=== PATIENT | female | born 1970 | race Caucasian/White ===

== ENCOUNTER 2019-05-13 14:58 | Emergency (ER) | payer SELFPAY ==
[2019-05-13] MEDS ORDERED: Ketorolac Tromethamine 30 MG/ML VIAL ONE (16:16)
[2019-05-13] MEDS ORDERED: Dexamethasone 10 MG/ML VIAL ONE (16:16)
== END 2019-05-13 16:30 | disposition home or self-care (01) ==
LOC: ERS 14:58
DX: M54.42 Lumbago with sciatica, left side (principal); I10 Essential (primary) hypertension; E11.9 Type 2 diabetes mellitus without complications
CPT/HCPCS: 96372; 99283; J1100; J1885

== ENCOUNTER 2020-09-10 16:01 | Emergency (ER) | payer OTHER ==
[2020-09-10 17:24] LABS: #Basophils 0.1 thou/uL (0.0-0.2); #Eosinphils 0.1 thou/uL (0.0-0.7); #Monocytes 0.4 thou/uL (0.11-0.59); #Neutrophils 8.6 thou/uL (1.40-6.50); %Basophils 0.7 % (0.0-1.0); %Eosinophils 0.6 % (0.0-10.0); %Lymphocytes 24.5 % (21.0-51.0); %Monocytes 3.6 % (0.0-10.0); %Neutrophils 70.6 % (42.0-75.0); Mean Corpuscular HGB CONC 35.1 g/dL (32.0-36.0); Mean Corpuscular Hemoglobin 31.2 pg (27.0-31.0); Mean Corpuscular Volume 88.9 fL (78.0-98.0); Mean Platelet Volume 9.4 fL (7.4-10.4); Platelet Count 217 thou/uL (130-400); RBC Distribution Width 12.1 % (11.5-14.5); Red Blood Cell (RBC) Count 5.13 mill/uL (4.20-5.40); White Blood Cell (WBC) Count 12.2 thou/uL (4.8-10.8)
[2020-09-10] MEDS ORDERED: Insulin Regular 300 UNITS/3 ML VIAL ONE (17:27)
[2020-09-10] MEDS ORDERED: Ondansetron PF 4 MG/2 ML Vial ONE (17:27)
[2020-09-10 17:46] LABS: ALT (SGPT) 11 U/L (8-55); AST (SGOT) 8 U/L (5-34); Albumin 4.5 g/dL (3.5-5.0); Alkaline Phosphatase 121 U/L (40-110); Anion Gap 18 mmol/L (10-20); BUN (Urea Nitrogen) 14 mg/dL (7.0-18.7); Bilirubin, Total 0.2 mg/dL (0.2-1.2); Calc. Creatinine Clearance 0 mL/min (70-130); Calcium 10.3 mg/dL (7.8-10.44); Carbon Dioxide 23 mmol/L (22-29); Chloride 97 mmol/L (98-107); Globulin 2.7 g/dL (2.4-3.5); Glucose 520 mg/dL (70-105); Potassium 4.5 mmol/L (3.5-5.1); Protein, Total 7.2 g/dL (6.0-8.3); Sodium 133 mmol/L (136-145)
== END 2020-09-10 20:00 | disposition home or self-care (01) ==
LOC: ERS 16:01
DX: E11.65 Type 2 diabetes mellitus with hyperglycemia (principal); E86.0 Dehydration; I10 Essential (primary) hypertension
CPT/HCPCS: 36415; 36416; 80053; 82010; 85025; 96374; 96375; J1815; J2405

== ENCOUNTER 2024-01-24 21:34 | Inpatient (IN) | payer OTHER ==
[2024-01-24] MEDS ORDERED: Morphine 4 MG/ML VIAL ONE ×2 (21:49→23:22)
[2024-01-24] MEDS ORDERED: PROPOFOL 20 ML ONE (22:06)
[2024-01-24 22:23] LABS: #Basophils 0.04 10x3/uL (0.0-0.2); %Basophils 0.5 % (0.0-1.0); %Eosinophils 0.8 % (0.0-10.0); %Lymphocytes 17.5 % (21.0-51.0); %Monocytes 5.6 % (0.0-10.0); %Neutrophils 75.4 % (42.0-75.0); Hematocrit 38.2 % (36.0-47.0); Hemoglobin 13.4 g/dL (12.0-16.0); Mean Corpuscular HGB CONC 35.1 g/dL (32.0-36.0); Mean Corpuscular Hemoglobin 28.8 pg (27.0-31.0); Mean Platelet Volume 11.8 fL (7.4-10.4); Platelet Count 214 10x3/uL (130-400); RBC Distribution Width 12.5 % (11.5-14.5); Red Blood Cell (RBC) Count 4.66 mill/uL (4.20-5.40)
[2024-01-24 22:36] LABS: INR-International Normal Ratio 0.8; Prothrombin Time 11.1 sec (12.0-14.7)
[2024-01-24 22:37] LABS: PTT 21.6 sec (22.9-36.1)
[2024-01-24 22:44] LABS: ALT (SGPT) 15 U/L (8-55); AST (SGOT) 17 U/L (5-34); Albumin 3.8 g/dL (3.5-5.0); Alkaline Phosphatase 98 U/L (40-110); Anion Gap 17 mmol/L (10-20); BUN (Urea Nitrogen) 13 mg/dL (9.8-20.1); Bilirubin, Total 0.3 mg/dL (0.2-1.2); Calc. Creatinine Clearance 0 mL/min (70-130); Calcium 9.1 mg/dL (7.8-10.44); Carbon Dioxide 20 mmol/L (22-29); Chloride 98 mmol/L (98-107); Estimated GFR 63; Globulin 3.2 g/dL (2.4-3.5); Glucose 587 mg/dL (70-105); Potassium 4.3 mmol/L (3.5-5.1); Sodium 131 mmol/L (136-145)
[2024-01-24] MEDS ORDERED: Ketamine In 0.9 % NaCl 50 MG/5 ML SYRINGE ONE (22:48)
[2024-01-24] MEDS ORDERED: HYDROcodone/Acetaminophen 7.5/325 mg Tablet PO PRN (23:33)
[2024-01-24] MEDS ORDERED: Ipratropium/Albuterol 3 ML NEB NEB PRN (23:33)
[2024-01-24] MEDS ORDERED: Acetaminophen 325 MG TAB PO PRN (23:33)
[2024-01-24] MEDS ORDERED: Dextrose 50% Abboject 50 ML SYRINGE SLOW IVP PRN (23:33)
[2024-01-24] MEDS ORDERED: Dextrose 5% in Water 1,000 ML IV PRN (23:33)
[2024-01-24] MEDS ORDERED: Glucagon 1 MG/ML KIT IM PRN (23:33)
[2024-01-24] MEDS ORDERED: Midazolam HCl 5 mg/ml Vial ONE (23:34)
[2024-01-24] MEDS ORDERED: Methocarbamol 500 MG TAB PO PRN (23:40)
[2024-01-24] MEDS ORDERED: Naloxone HCl 0.4 mg/ml Vial ONE ×2 (23:40→23:44)
[2024-01-25] MEDS: Morphine 4 MG/ML VIAL SLOW IVP PRN (01:20)
[2024-01-25] MEDS: Sodium Chloride 0.9% 1,000 ML IV SCH (03:31)
[2024-01-25] MEDS: Insulin Lispro 100 UNIT/ML 10 ML VIAL SC PRN ×2 (03:31→22:28)
[2024-01-25 04:56] LABS: #Basophils Less than 0.03 10x3/uL (0.0-0.2); %Basophils 0.2 % (0.0-1.0); %Eosinophils 0.4 % (0.0-10.0); %Lymphocytes 14.6 % (21.0-51.0); %Monocytes 5.2 % (0.0-10.0); %Neutrophils 79.1 % (42.0-75.0); Hematocrit 34.9 % (36.0-47.0); Hemoglobin 11.8 g/dL (12.0-16.0); Mean Corpuscular HGB CONC 33.8 g/dL (32.0-36.0); Mean Corpuscular Hemoglobin 28.8 pg (27.0-31.0); Mean Corpuscular Volume 85.1 fL (78.0-98.0); Mean Platelet Volume 11.8 fL (7.4-10.4); Platelet Count 189 10x3/uL (130-400); RBC Distribution Width 12.6 % (11.5-14.5)
[2024-01-25 05:00] LABS: Hemoglobin A1c Greater than 14.0 % (4.0-6.0)
[2024-01-25 05:19] LABS: Anion Gap 14 mmol/L (10-20); BUN (Urea Nitrogen) 11 mg/dL (9.8-20.1); Calc. Creatinine Clearance 90 mL/min (70-130); Calcium 8.3 mg/dL (7.8-10.44); Carbon Dioxide 19 mmol/L (22-29); Chloride 105 mmol/L (98-107); Estimated GFR 79; Glucose 496 mg/dL (70-105); Potassium 3.6 mmol/L (3.5-5.1); Sodium 134 mmol/L (136-145)
[2024-01-25] MEDS: Ondansetron ODT 4 MG TAB PO PRN (08:31)
[2024-01-25] MEDS: Insulin Glargine 30 UNITS/0.3 ML VIAL SC SCH ×2 (10:41→22:29)
[2024-01-25] MEDS: HYDROmorphone 0.5 MG/0.5 ML SYRINGE SLOW IVP SCH (10:42)
[2024-01-25] MEDS: Ranolazine ER 500 MG TAB PO SCH (10:44)
[2024-01-25] MEDS: Famotidine 20 MG TAB PO SCH (10:44)
[2024-01-25] MEDS: Metoprolol Tartrate 25 MG TAB PO SCH (10:44)
[2024-01-25] MEDS ORDERED: Iopamidol-370 76% 500 ML MDV (1 ML CHARGE) ONE (12:54)
[2024-01-25] MEDS ORDERED: Naloxone HCl 0.4 mg/ml Vial IV PRN (17:00)
[2024-01-25] MEDS: Tamsulosin HCl 0.4 MG CAP PO SCH (18:35)
[2024-01-25] MEDS: Methocarbamol 1 GM in Sodium Chloride 0.9% 100 ML IVPB SCH (18:35)
[2024-01-25] MEDS: fentaNYL 50 mcg/mL 1 mL Vial SLOW IVP SCH (20:33)
[2024-01-25] MEDS: Pantoprazole 40 MG VIAL IVP SCH (21:30)
[2024-01-25] MEDS: Atorvastatin Calcium 40 MG TAB PO SCH (21:36)
[2024-01-25] MEDS: Amitriptyline HCl 25 MG TAB PO SCH (21:36)
[2024-01-25] MEDS: HYDROmorphone/PF 10 MG in Sodium Chloride 0.9% 99 ML IVPB PRN (23:25)
[2024-01-26] MEDS: Insulin Glargine 30 UNITS/0.3 ML VIAL SC SCH ×2 (08:56→22:15)
[2024-01-26] MEDS: Pantoprazole 40 MG VIAL IVP SCH (08:57)
[2024-01-26] MEDS ORDERED: Insulin Glargine 30 UNITS/0.3 ML VIAL SC SCH (09:00)
[2024-01-26] MEDS: Tamsulosin HCl 0.4 MG CAP PO SCH (09:06)
[2024-01-26] MEDS: FLU (Fluarix Triv) TS24-25(6MOS UP)/PF 45 MCG/0.5 ML Syringe IM ONE (09:07)
[2024-01-26] MEDS: Acetaminophen 500 MG TAB PO SCH (16:58)
[2024-01-26] MEDS ORDERED: CEFAZOLIN 2 GM in Sodium Chloride 0.9% 100 ML IVPB SCH (18:30)
[2024-01-27] MEDS: Tamsulosin HCl 0.4 MG CAP PO SCH (07:24)
[2024-01-27] MEDS: Pantoprazole DR 40 MG TAB PO SCH (07:24)
[2024-01-27] MEDS ORDERED: PROPOFOL 20 ML ONE (12:40)
[2024-01-27] MEDS ORDERED: Rocuronium Bromide 10 MG/ML (10ML VIAL) ONE (12:40)
[2024-01-27] MEDS ORDERED: fentaNYL PF 100 MCG/2 ML SYRINGE ONE ×2 (12:40→16:29)
[2024-01-27] MEDS ORDERED: Lidocaine 1% PF 5 ML VIAL ONE (12:40)
[2024-01-27] MEDS ORDERED: CEFAZOLIN 2 GM VIAL ONE (12:46)
[2024-01-27] MEDS ORDERED: Promethazine HCl 25 MG/ML VIAL IM PRN (13:56)
[2024-01-27] MEDS ORDERED: Ondansetron HCl/PF 4 MG/2 ML Vial IVP PRN (13:56)
[2024-01-27] MEDS ORDERED: Bupivacaine 0.25% HCL 30 ML VIAL ONE (15:13)
[2024-01-27] MEDS ORDERED: Ketamine In 0.9 % NaCl 50 MG/5 ML SYRINGE ONE (15:16)
[2024-01-27] MEDS ORDERED: Glycopyrrolate 0.2 MG/ML 5 ML SYRINGE ONE (15:18)
[2024-01-27] MEDS ORDERED: NEOSTIGMINE 3 MG/3 ML SYRINGE ONE (15:18)
[2024-01-27] MEDS ORDERED: fentaNYL 50 mcg/mL 1 mL Vial ONE (15:59)
[2024-01-27] MEDS: Morphine 2 MG/ML VIAL SLOW IVP PRN (17:58)
[2024-01-27] MEDS: Ketorolac Tromethamine 30 MG (1 mL) VIAL IVP SCH (17:58)
[2024-01-27] MEDS: Acetaminophen 325 MG TAB PO SCH (17:59)
[2024-01-27] MEDS: CEFAZOLIN 2 GM in Sodium Chloride 0.9% 100 ML IVPB SCH (22:50)
[2024-01-28] MEDS: HYDROcodone/Acetaminophen 7.5/325 mg Tablet PO PRN (03:00)
[2024-01-28 05:28] LABS: #Basophils 0.03 10x3/uL (0.0-0.2); %Basophils 0.3 % (0.0-1.0); %Eosinophils 0.7 % (0.0-10.0); %Lymphocytes 17.8 % (21.0-51.0); %Monocytes 7.9 % (0.0-10.0); %Neutrophils 72.8 % (42.0-75.0); Hemoglobin 8.2 g/dL (12.0-16.0); Mean Corpuscular HGB CONC 32.8 g/dL (32.0-36.0); Mean Corpuscular Hemoglobin 29.2 pg (27.0-31.0); Mean Platelet Volume 11.7 fL (7.4-10.4); Platelet Count 161 10x3/uL (130-400); RBC Distribution Width 12.8 % (11.5-14.5); Red Blood Cell (RBC) Count 2.81 mill/uL (4.20-5.40)
[2024-01-28 06:18] LABS: Anion Gap 14 mmol/L (10-20); BUN (Urea Nitrogen) 17 mg/dL (9.8-20.1); Calc. Creatinine Clearance 99 mL/min (70-130); Calcium 8.5 mg/dL (7.8-10.44); Carbon Dioxide 22 mmol/L (22-29); Chloride 105 mmol/L (98-107); Estimated GFR 87; Glucose 264 mg/dL (70-105); Magnesium 1.7 mg/dL (1.6-2.6); Potassium 3.9 mmol/L (3.5-5.1); Sodium 137 mmol/L (136-145)
[2024-01-28 06:20] LABS: Phosphorus 2.3 mg/dL (2.3-4.7)
[2024-01-28] MEDS: Lactated Ringer's 500 ML IV SCH (09:21)
[2024-01-28] MEDS: Ondansetron PF 4 MG/2 ML Vial IVP PRN (09:21)
[2024-01-28] MEDS: Enoxaparin 40 MG (0.4 mL) SYRINGE SC SCH (09:22)
[2024-01-28] MEDS: Magnesium 2 GM/50 ML(in water) 2 GM in Premix 1 BAG IVPB SCH (09:22)
[2024-01-28] MEDS: Insulin Glargine 30 UNITS/0.3 ML VIAL SC SCH (12:44)
[2024-01-29 06:18] LABS: #Basophils Less than 0.03 10x3/uL (0.0-0.2); %Basophils 0.3 % (0.0-1.0); %Lymphocytes 26.4 % (21.0-51.0); %Monocytes 8.6 % (0.0-10.0); %Neutrophils 61.3 % (42.0-75.0); Hematocrit 24.6 % (36.0-47.0); Hemoglobin 8.1 g/dL (12.0-16.0); Mean Corpuscular HGB CONC 32.9 g/dL (32.0-36.0); Mean Corpuscular Hemoglobin 28.9 pg (27.0-31.0); Mean Corpuscular Volume 87.9 fL (78.0-98.0); Mean Platelet Volume 11.4 fL (7.4-10.4); Platelet Count 178 10x3/uL (130-400)
[2024-01-29] MEDS: Lactulose 20 GM (30 mL) UDCUP PO SCH (08:58)
[2024-01-29] MEDS: Senokot S 8.6-50 MG TAB PO SCH (08:59)
[2024-01-29] MEDS: Methocarbamol 500 MG TAB PO PRN (15:19)
[2024-01-30 04:09] VITALS: BMI 29.7
[2024-01-30 06:26] LABS: Hematocrit 23.4 % (36.0-47.0); Hemoglobin 7.7 g/dL (12.0-16.0)
[2024-01-30 10:23] VITALS: BMI 29.7
[2024-01-30] MEDS: Ferrous Sulfate 325 MG TAB PO SCH (17:46)
[2024-01-30] MEDS: Melatonin 3 MG TAB PO SCH (20:32)
[2024-01-30] MEDS: Ascorbic Acid 500 mg Chewable Tablet PO SCH (20:32)
[2024-02-01] MEDS: Ondansetron ODT 8 MG TAB SL SCH (13:09)
[2024-02-01] MEDS: Acetaminophen/Codeine 30-300mg Tablet PO PRN (17:21)
[2024-02-01] MEDS ORDERED: Non-Formulary Item 1 EACH (Pregabalin [Pregabalin] 300 MG Capsule) PO SCH (21:00)
[2024-02-01] MEDS: Amitriptyline HCl 25 MG TAB PO SCH (21:04)
[2024-02-01] MEDS: Docusate 100 MG CAP PO SCH (21:04)
[2024-02-01] MEDS: Pregabalin 75 MG CAP PO SCH (21:06)
[2024-02-01] MEDS: Ondansetron ODT 4 MG TAB SL SCH (23:22)
[2024-02-02 08:26] LABS: Hematocrit 25.2 % (36.0-47.0); Hemoglobin 7.8 g/dL (12.0-16.0)
[2024-02-02] MEDS: Sertraline 25 MG TAB PO SCH (08:39)
[2024-02-03 12:01] VITALS: TEMP 99.7
[2024-02-03 16:09] VITALS: BP 154/91
== END 2024-02-03 16:16 | disposition home health service (06) | DRG 482 ==
LOC: ERS 21:34 → IMCU/EMU 23:55 → SURG A 01-27 17:28
PROVIDERS: ADMIT Surgery; ATTEND Surgery
PROC: 0QSC04Z Reposition Left Lower Femur with Internal Fixation Device, Open Approach (ICD-10-PCS; principal; 2024-01-27)
DX: S72.402A Unspecified fracture of lower end of left femur, initial encounter for closed fracture (principal); E11.65 Type 2 diabetes mellitus with hyperglycemia; I25.2 Old myocardial infarction; I25.10 Atherosclerotic heart disease of native coronary artery without angina pectoris; W19.XXXA Unspecified fall, initial encounter; G89.29 Other chronic pain; E11.42 Type 2 diabetes mellitus with diabetic polyneuropathy; R33.9 Retention of urine, unspecified; D64.9 Anemia, unspecified; Y93.01 Activity, walking, marching and hiking; Y92.89 Other specified places as the place of occurrence of the external cause; Z90.49 Acquired absence of other specified parts of digestive tract; Z90.710 Acquired absence of both cervix and uterus; Z79.82 Long term (current) use of aspirin; Z79.899 Other long term (current) drug therapy; Z79.4 Long term (current) use of insulin; Z95.5 Presence of coronary angioplasty implant and graft; Z79.891 Long term (current) use of opiate analgesic; Z91.148 Patient's other noncompliance with medication regimen for other reason; M62.838 Other muscle spasm; Z79.84 Long term (current) use of oral hypoglycemic drugs
CPT/HCPCS: 27502; 36415; 36416; 70450; 71045; 72125; 72170; 80048; 80053; 83036; 83735; 84100; 85014; 85018; 85025; 85610; 85730; 86850; 86900; 86901; 93005; 96374; 96375; 96376; 99152; C1713; G0390; J0665; J1170; J1650; J1815; J1885; J2250; J2272; J2310; J2405; J2470; J2704; J2800; J3010; J3475; J3490; J7030; J7120; Q0162; Q9967